=== PATIENT | female | born 1945 | race Caucasian/White ===

== ENCOUNTER 2022-10-16 11:54 | Inpatient (IN) | payer MEDICARE, SELFPAY ==
[2022-10-16] VITALS (7 sets, daily range): BP systolic 118–160; BP diastolic 56–99; PULSE 68–91; RESP 17–24; TEMP 36.5–36.8; O2SAT 90–98
--- NOTE | 2022-10-16 12:10 | XR_ITS ---
WS: [id number] Portable AP semiupright chest, 10/16/2022 Clinical Data: dyspnea/cough Comparison: Portable chest, 12/20/2014 Findings: No nodules, masses or effusions are seen. There is a minimal patchy opacity extending from the right hilum into the right lower lobe. The heart is normal. The pulmonary vascularity is not incr eased. No pneumothorax is seen. The aortic arch and descending thoracic aorta show tortuosity and mil d calcification. There are monitor leads on the chest wall. The patient has had a posterior thoracolu mbar fusion. There is a healed right lateral seventh rib fracture. Impression: 1. Atherosclerosis. 2. Minimal patchy right hilar opacity which could indicate pneumonia and/or atelectasis.
--- NOTE | 2022-10-16 12:12 | CT_ITS ---
WS: [id number] CT HEAD TECHNIQUE: Noncontrast CT of the head obtained from the skullbase to the vertex. CLINICAL INFORMATION: AMS COMPARISON: None. DLP: 876.[address] scans at [facility] use at least one of these dose optimization techniques: automated e xposure control; mA and/or kV adjustment per patient size (includes targeted exams where dose is matc hed to clinical indication); or iterative reconstruction. FINDINGS: No evidence of intracranial hemorrhage or mass effect. Ventricular system and basal cisterns are muñoz nt. Moderate to advanced small vessel changes with moderate parenchymal volume loss. No extra-axial f luid collections. No evidence of mass or mass effect. Vascular calcification. Tiny chronic lacunar in farcts in the cerebellum. 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 This can be fo llowed up with CTA. No evidence of hemorrhage. Tiny chronic lacunar infarcts in the LEFT greater than RIGHT basal ganglia and LEFT thalamus. Paranasal sinuses and mastoid air cells are well aerated. .Normal visualized soft tissues. Normal po sterior nasopharynx. IMPRESSION: 1. No evidence of intracranial hemorrhage or mass effect. 2. Moderate to advanced small vessel changes with moderate parenchymal volume loss. 3. Intracranial vascular calcification. 4. 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 This can be followed up with CTA. No evidence of hemorrhage. 5. No other suspicious findings. Notified Andrew Conti DO at 10/16/2022 1:05 PM.
--- NOTE | 2022-10-16 12:12 | ECG_ITS ---
[facility] Test Date: 2022-10-16 Pat Name: Jacquelin Leal Department: Room: Gender: Female Paper Bundler: : 1945 Requested By: Andrew Cruz Order Number: [id number] Leticia MD: Gallo Albarado M.D. Measurements Intervals [place] Rate: 65 P: 39 [place]: 166 QRS: -19 QRSD: 89 T: 75 QT: 415 QTc: 433 Interpretive Statements SINUS RHYTHM MINIMAL VOLTAGE CRITERIA FOR LVH, CONSIDER NORMAL VARIANT [MEETS CRITERIA IN ONE OF: R(aVL), S(V1), R(V5), R(V5/V6)+S(V1)] No previous ECG available for comparison Electronically Signed On 10-16-2022 17:21:19 CDT by Gallo Albarado M.D. [id number]
[2022-10-16 12:23] LABS: Basophils # 0.1 10^3/uL (0.0-0.1); Basophils % 0.5 %; Eosinophils % 0.1 %; Hematocrit 47.5 % (36-47); Lymphocytes # 1.8 10^3/uL (0.8-4.8); Lymphocytes % 16.6 %; Mean Corpuscular HGB Conc 31.6 g/dL (30-55); Mean Corpuscular Hemoglobin 29.5 pg (27-33); Mean Corpuscular Volume 93.5 fl (85-98); Monocytes # 0.7 10^3/uL (0.2-0.9); Monocytes % 6.6 %; Neutrophils # 8.36 10^3/uL (1.8-7.7); Neutrophils % 75.8 %; Nucleated Red Blood Cells % 0 %; Platelet Count 203 10^3/cmm (157-399); Red Blood Count 5.08 10^6/uL (3.85-5.65); Red Cell Distribution Width 13.1 % (12.1-15.1); White Blood Count 11.02 10^3/uL (3.29-11.43)
--- NOTE | 2022-10-16 12:31 | PC.PHAR ---
PT UNABLE TO VERIFY DUE TO AMS- MEDICATIONS VERIFIED USING EXTERNAL MED LIST AND CALLING [facility]
[2022-10-16 12:41] LABS: Alanine Aminotransferase 16 U/L (0-33); Albumin Level 4.3 g/dL (3.5-5.2); Alkaline Phosphatase 132 U/L (35-105); Calcium 9.1 mg/dL (8.5-10.5); Carbon Dioxide 19 mmol/L (22-29); Chloride 100 mmol/L (98-107); Creatine Phosphokinase 200 U/L (26-192); Globulin 3.2 g/dL (1.3-4.6); Glucose 135 mg/dL (65-115); Magnesium 2.9 mg/dL (1.7-2.3); Osmolality Calculated 305 mOsm/kg (285-295); Sodium 133 mmol/L (136-145); Total Protein 7.5 g/dL (6.6-8.7)
--- NOTE | 2022-10-16 12:45 | W.ED.AMS ---
HPI - Altered Mental Status General: Chief Complaint: Altered Mental Status Stated Complaint: fall,ams Time Seen by Provider: 10/16/22 12:01 Source: patient Mode of arrival: EMS History of Present Illness: 76-year-old female who presents to the emergency room with a complaint of altered mental status. Her sister is here with her. She is alert but does not remember anything she is noted a difficult time with her name and her birthday she does remember that she lives in [place] she is able to tell me she feels a little bit short of breath but otherwise denies everything else. He is unsure of date or time. There is bruising on the right jewish. No other injuries. A sister who is a nearest family member states she normally manages her own finances buys her groceries she has not driven for several years normally she is ambulatory without difficulty. She states this is definitely altered mental status for her. Her last known well was 2 days ago she is uncertain if anyone seen her yesterday MD complaint: altered mental status Timing confirmed by: family member Severity: moderate Review of Systems General: Reports: ROS unobtainable due to mental status PFSH ED PFSH: Medical History MIGUEL (acute kidney injury) AMS (altered mental status) Delirium Hyperkalemia Hypertension Metabolic acidosis Family History Denies family history of Bleeding disorder Social History Smoking and tobacco status: never smoked Physical Exam Const: ORIENTATION/CONSCIOUSNESS: Yes awake HENMT: COMMON NORMALS: normocephalic, atraumatic, hearing grossly normal bilaterally, Normal nasal mucous membranes and turbinates present, moist oral mucous membranes and oropharynx normal HEAD & SCALP: normocephalic and atraumatic NOSE: Normal nasal mucous membranes and turbinates present Eye: COMMON NORMALS: Equal, round and reactive pupils present, EOMs intact bilaterally, conjunctivae normal and no scleral icterus CONJUNCTIVA: Yes conjunctivae normal PUPIL: Yes Equal, round and reactive pupils present Neck/C-Spine: COMMON NORMALS: full ROM, no lymphadenopathy, supple and no JVD Lymph: LYMPHATIC: no lymphadenopathy noted and no lymphedema noted Resp: COMMON NORMALS: normal respiratory effort, No retractions, No use of accessory muscles and clear to auscultation bilaterally AUSCULTATION: clear to auscultation bilaterally Cardio: COMMON NORMALS: no JVD, regular rate, regular rhythm and No murmurs present (Cardio) RATE: regular rate RHYTHM: regular rhythm GI: COMMON NORMALS: Soft to palpation and No hepatosplenomegaly present AUSCULTATION: Yes normoactive bowel sounds PALPATION: Yes Soft to palpation, No Tenderness to palpation present (GI), No Guarding due to palpation present (GI) and Yes No hepatosplenomegaly present Extremity: COMMON NORMALS: normal to inspection, capillary refill normal, no clubbing, cyanosis or edema, no calf tenderness and no pedal edema Skin: COMMON NORMALS: no rashes or lesions noted GENERAL SKIN EXAM: no rashes or lesions noted Course Vital Signs: Vital signs: Vital Signs Temperature 98.3 F 10/19/22 14:20 Pulse Rate 79 10/19/22 14:20 Respiratory Rate 16 10/19/22 14:20 Blood Pressure 148/79 10/19/22 14:20 Pulse Oximetry 94 10/19/22 14:20 Oxygen Delivery Me thod Room Air 10/19/22 11:05 MDM - Altered Mental Status Medical Decision Making Acute encephalopathy with acute kidney injury and mild metabolic acidosis hypertension. There is some mild underlying dementia as well. Suspect that the majority of her issues driven by her acute kidney injury and for volume depletion. Discussed with hospitalist orders written Medical Records I reviewed the patient's medical records. Lab Data I reviewed the patient's lab results. 10/18/22 04:32 10/19/22 05:00 Laboratory Results WBC 11.02 10^3/uL (3.29-11.43) 10/16/22 12:18 RBC 5.08 10^6/uL (3.85-5.65) 10/16/22 12:18 Hgb 15.00 g/dL (11.27-16.99) 10/16/22 12:18 Hct 47.5 % (36-47) H 10/16/22 12:18 MCV 93.5 fl (85-98) 10/16/22 12:18 MCH 29.5 pg (27-33) 10/16/22 12:18 MCHC 31.6 g/dL (30-55) 10/16/22 12:18 RDW 13.1 % (12.1-15.1) 10/16/22 12:18 Plt Count 203 10^3/cmm (157-399) 10/16/22 12:18 MPV 10.0 fL (7.4-10.4) 10/16/22 12:18 Neut % (Auto) 75.8 % 10/16/22 12:18 Lymph % (Auto) 16.6 % 10/16/22 12:18 [place] % (Auto) 6.6 % 10/16/22 12:18 Eos % (Auto) 0.1 % 10/16/22 12:18 Baso % (Auto) 0.5 % 10/16/22 12:18 Neut # (Auto) 8.36 10^3/uL (1.8-7.7) H 10/16/22 12:18 Lymph # (Auto) 1.8 10^3/uL (0.8-4.8) 10/16/22 12:18 [place] # (Auto) 0.7 10^3/uL (0.2-0.9) 10/16/22 12:18 Eos # (Auto) 0.0 10^3/uL (0.0-0.8) 10/16/22 12:18 Baso # (Auto) 0.1 10^3/uL (0.0-0.1) 10/16/22 12:18 Nucleated RBC % (auto) 0 % 10/16/22 12:18 Nucleated RBCs # 0.0 /100WBC 10/16/22 12:18 PT 14.40 SECONDS (12.1-14.9) 10/16/22 12:18 INR 1.09 (0.8-1.2) 10/16/22 12:18 APTT 35.8 SECONDS (23.9-36.7) 10/16/22 12:18 Specimen Type Arterial 10/16/22 13:02 Sample Site Radial, left 10/16/22 13:02 ABG pH 7.27 (7.35-7.45) L 10/16/22 13:02 ABG pCO2 38.4 mmHg (35-45) 10/16/22 13:02 ABG pO2 70.7 mmHg (80.0-100.0) L 10/16/22 13:02 ABG HCO3 17.5 mmol/L (22-26) L 10/16/22 13:02 ABG O2 Saturation 94.7 10/16/22 13:02 ABG Base Excess -8.9 mmol/L (-2.0-2.0) L 10/16/22 13:02 Obi Test Pos 10/16/22 13:02 A-a O2 Gradient 4.0 mmHg (5-10) L 10/16/22 13:02 Hematocrit 47.5 % (37-47) H 10/16/22 13:02 Hgb O2 Saturation 92.9 % (95-100) L 10/16/22 13:02 Carboxyhemoglobin 1.5 %THgb (0.4-20.1) 10/16/22 13:02 Methemoglobin 0.3 % (0.4-1.5) L 10/16/22 13:02 Total Hemoglobin 15.5 g/dL (12-16) 10/16/22 13:02 Sodium 137.0 mmol/L (131-143) 10/16/22 13:02 Potassium 6.2 mmol/L (3.5-5.0) H 10/16/22 13:02 Glucose 129.0 mg/dL (70-115) H 10/16/22 13:02 Ionized Calcium 1.2 mmol/L (1.1-1.4) 10/16/22 13:02 O2 Delivery Device Room air 10/16/22 13:02 FiO2 21.0 % 10/16/22 13:02 Machine Set Up Operator ID [place] 10/16/22 13:02 Sodium 133 mmol/L (136-145) L 10/16/22 12:18 Potassium 5.9 mmol/L (3.5-5.1) H 10/16/22 12:18 Chloride 100 mmol/L (98-107) 10/16/22 12:18 Carbon Dioxide 19 mmol/L (22-29) L 10/16/22 12:18 Anion Gap 19.9 (5-19) H 10/16/22 12:18 BUN 89 mg/dL (8-23) H* 10/16/22 12:18 Creatinine 3.7 mg/dL (0.5-0.9) H 10/16/22 12:18 GFR Calculation Not Reportable 10/16/22 12:18 Glucose 135 mg/dL (65-115) H 10/16/22 12:18 Estimat Average Glucose 105 10/16/22 12:18 Hemoglobin A1c 5.3 % (4.0-6.0) 10/16/22 12:18 Calculated Osmolality 305 mOsm/kg (285-295) H 10/16/22 12:18 Lactic Acid 1.3 mmol/L (0.5-2.2) 10/16/22 13:30 Calcium 9.1 mg/dL (8.5-10.5) 10/16/22 12:18 Magnesium 2.9 mg/dL (1.7-2.3) H 10/16/22 12:18 Magnesium 3.0 mg/dL (1.7-2.3) H 10/16/22 12:18 Total Bilirubin 1.0 mg/dL (0.15-1.2) 10/16/22 12:18 AST 23 U/L (0-32) 10/16/22 12:18 ALT 16 U/L (0-33) 10/16/22 12:18 Alkaline Phosphatase 132 U/L (35-105) H 10/16/22 12:18 Ammonia 24 umol/L (11-51) 10/16/22 13:30 Creatine Kinase 200 U/L (26-192) H 10/16/22 12:18 Total Protein 7.5 g/dL (6.6-8.7) 10/16/22 12:18 Albumin 4.3 g/dL (3.5-5.2) 10/16/22 12:18 Globulin 3.2 g/dL (1.3-4.6) 10/16/22 12:18 Vitamin B12 > 2000 pg/mL (232-1245) H 10/16/22 12:18 Procalcitonin 0.27 ng/mL (0-0.5) 10/16/22 12:18 TSH 1.35 uIU/mL (0.27-4.20) 10/16/22 12:18 Urine Color Yellow (Yellow) 10/16/22 14:38 Urine Appearance Sl hazy (CLEAR) A 10/16/22 14:38 Urine pH 5 (5-7) 10/16/22 14:38 Ur Specific [place] 1.020 (1.005-1.030) 10/16/22 14:38 Urine Protein Trace (Negative) 10/16/22 14:38 Urine Glucose (UA) Norm (Normal) 10/16/22 14:38 Urine Ketones Negative (Negative) 10/16/22 14:38 Urine Blood 3+ (Negative) H 10/16/22 14:38 Urine Nitrate Negative (Negative) 10/16/22 14:38 Urine Bilirubin Neg (Negative) 10/16/22 14:38 Urine Urobilinogen Norm mg/dL (Negative) 10/16/22 14:38 Ur Leukocyte Esterase Negative (Negative) 10/16/22 14:38 Urine RBC 0-4 /hpf (0-2) H 10/16/22 14:38 Urine WBC 0-4 /hpf (0-5) H 10/16/22 14:38 Ur Squamous Epith Cells 0-4 /hpf (0-5) H 10/16/22 14:38 Amorphous Sediment 2+ /hpf 10/16/22 14:38 Urine Bacteria Trace /hpf (NONE) 10/16/22 14:38 Serum Ketones Negative (Negative) 10/16/22 12:18 Discharge Plan Discharge Patient Disposition: Admitted As Inpatient Admit Provider: Herlinda Griffith Clinical Impression: Delirium due to general medical condition, Acute kidney injury, Metabolic acidosis, increased anion gap, Dementia Condition: Stable Coding Level of Care Code ED Glass Tinter for Carmela Jalloh
[2022-10-16 12:58] LABS: Anion Gap 19.9 (5-19); Aspartate Amino Transferase 23 U/L (0-32); Blood Urea Nitrogen 89 mg/dL (8-23); Potassium 5.9 mmol/L (3.5-5.1)
[2022-10-16 13:13] LABS: ABG PCO2 38.4 mmHg (35-45); ABG PH Result 7.27 (7.35-7.45); Arterial Blood Gas Hematocrit 47.5 % (37-47); Base Excess ABG -8.9 mmol/L (-2.0-2.0); Blood Gas Allen Test Pos; Blood Gas Operator Identificat WALCI; Blood Gas Sample Site Radial, left; Blood Gas Sample Type Arterial; Carboxyhemoglobin 1.5 %THgb (0.4-20.1); HCO3 ABG 17.5 mmol/L (22-26); HGB O2 Sat 92.9 % (95-100); Ionized Calcium Level - ABG 1.2 mmol/L (1.1-1.4); Methemoglobin 0.3 % (0.4-1.5); Oxygen Device ROOM AIR; Oxygen Saturation ABG 94.7; PO2 ABG 70.7 mmHg (80.0-100.0); Potassium Level - ABG 6.2 mmol/L (3.5-5.0); Total Hemoglobin 15.5 g/dL (12-16)
[2022-10-16 13:16] LABS: Ketone (Acetest) Serum Negative (Negative)
[2022-10-16 13:24] LABS: INR 1.09 (0.8-1.2)
[2022-10-16 13:25] LABS: Partial Thromboplastin Time 35.8 SECONDS (23.9-36.7)
--- NOTE | 2022-10-16 13:38 | CT_ITS ---
WS: [id number] CT ABDOMEN PELVIS TECHNIQUE: Noncontrast CT of the abdomen and pelvis with coronal and sagittal reformatted images. CLINICAL INFORMATION: Abdominal pain COMPARISON: CT 2015 DLP: 797.[address] scans at [facility] use at least one of these dose optimization techniques: automated e xposure control; mA and/or kV adjustment per patient size (includes targeted exams where dose is matc hed to clinical indication); or iterative reconstruction. FINDINGS: Lung bases are well aerated. Slight bibasal atelectasis. Noncontrast liver is normal. Mild fluid dist ention of the gallbladder. No gallbladder wall thickening or pericholecystic fluid. Noncontrast splee n appears normal. Normal GE junction. Mild fatty atrophy of the pancreas. Normal noncontrast aorta. A drenal glands are normal. No hydronephrosis in either kidney. Urine distended bladder. Sigmoid diverticulosis. No evidence of acute diverticulitis. Normal appendix in the RIGHT lower quadrant. No free fluid in the abdomen or pelvis. Chronic postoperative changes l ower thoracic and lumbar spine with pedicle screw fixation and interconnecting rods. IMPRESSION: 1. Mild fluid distention of the gallbladder which is otherwise normal in appearance. 2. No hydronephrosis in either kidney. No obstructing renal or ureteral calculi. 3. Sigmoid diverticulosis. No evidence of acute diverticulitis. 4. No other suspicious findings.
[2022-10-16] MEDS: dextrose 10% 250 ML 1000 ML IV (13:42)
[2022-10-16] MEDS: piperacillin-tazobactam 3.375 GM in sodium chloride 0.9% (plus) 50 ML IV (13:46)
[2022-10-16] MEDS: sodium chloride 0.9% 1,000 ML 999 ML IV (13:47)
[2022-10-16 13:54] LABS: Ammonia 24 umol/L (11-51); Lactic Sepsis W/Reflex 1.3 mmol/L (0.5-2.2)
[2022-10-16] MEDS: albuterol 2.5 mg/3 mL Neb 7.5 MG INHALATION (14:14)
[2022-10-16] MEDS: insulin regular-human 100 units/1 mL 10 UNIT IVP (14:16)
[2022-10-16] MEDS: calcium gluconate 0.9% NaCL 1 GM/50 ML PREMIX IV ×2 (14:17→14:41)
[2022-10-16 14:55] LABS: Glucose Urine UA Norm (Normal); Ketones Urine Negative (Negative); Protein Urine Trace (Negative); Urine Appearance SL Hazy (CLEAR); Urine Color Yellow (Yellow); pH Urine 5 (5-7)
[2022-10-16 14:56] LABS: Add Urine Culture? No; Add Urine Microscopic? YES; Amorphous Sediment Urine 2+ /hpf; Bacteria Urine TRACE /hpf; Bilirubin Urine Neg (Negative); Blood Urine 3+ (Negative); Leukocyte Esterase Urine Negative (Negative); Nitrate Urine Negative (Negative); RBC Urine 0-4 /hpf (0-2); Squamous Epithelial Cell Urine 0-4 /hpf (0-5); Urobilinogen Urine Norm (Negative); WBC Urine 0-4 /hpf (0-5)
[2022-10-16 15:16] LABS: Glucose Point of Care 117 mg/dL (70-110)
--- NOTE | 2022-10-16 15:25 | P.HP_ITS ---
Providers/Chief Complaint Primary Care Provider: Ghada Burton APN Chief Complaint: fall,ams History of Present Illness Jacquelin Leal is a 76 year old female who carries a diagnosis of memory impairment, hypertension, anxiety, dyslipidemia presented to the hospital with chief complaint of confusion. Sister is at the bedside who is stating that she called EMS when she found her sister to be confused. Last Wednesday they went to [facility] for grocery shopping. At baseline patient is forgetful, struggling with her financial services consultant, she is living in a high-rise building at one of the [facility] apartments, she is at risk of losing her apartment because her room has not been very tidy she is under stress. 2 weeks ago she went to see primary care physician who added medications other than lisinopril which she has been taking for hypertension. In the ER she is dehydrated and confused, CT abdomen pelvis was requested wi thout contrast, she is afebrile, no leukocytosis Review of Systems General: Reports: ROS unobtainable due to medical condition Medications/Allergies Home Medications Medication Instructions Recorded Confirmed Last Taken Type baclofen 5 mg tablet 5 mg PO TID PRN Pain 10/16/22 10/16/22 Unknown History buspirone 10 mg tablet 10 mg PO BID 10/16/22 10/16/22 Unknown History citalopram 20 mg tablet 20 mg PO BID 10/16/22 10/16/22 Unknown History lisinopril 20 mg tablet 20 mg PO BID 10/16/22 10/16/22 Unknown History metoprolol tartrate 50 mg tablet See Rx Instructions .Route .COMPLEX 10/16/22 10/16/22 Unknown History rosuvastatin 20 mg tablet 20 mg PO QPM 10/16/22 10/16/22 Unknown History tramadol 50 mg tablet 50 mg PO Q4H PRN Pain 10/16/22 10/16/22 Unknown History triamterene 37.5 1 tab PO DAILY 10/16/22 10/16/22 Unknown History mg-hydrochlorothiazide 25 mg tablet Allergies Allergy/AdvReac Type Severity Reaction Status Date / Time Unable to Assess Allergy Unverified 10/16/22 14:10 PFSH Acute PFSH: Medical History Hypertension Family History Denies family history of Bleeding disorder Social History Smoking and tobacco status: never smoked Vitals/I&O/Wt Last Vital Signs Temp 98.1 F 10/16/22 12:03 Pulse 86 10/16/22 14:32 Resp 18 10/16/22 14:11 BP 160/70 10/16/22 14:19 Pulse Ox 98 10/16/22 14:11 O2 Del Method Room Air 10/16/22 14:11 10/16/22 10/16/22 10/16/22 06:59 14:59 22:59 Intake Total 340 / 340 1050 / 1390 Balance 340 / 340 1050 / 1390 Physical Exam Narrative: Patient is not oriented to time and place, oriented to person Able to tell me name of the president She is not able to tell me her date of , she notes her sister is in the ro om She is able to follow commands, nonfocal neuro exam Clinically looks dehydrated GCS 15 Systolic murmur present Currently on room air Hemodynamically stable Afebrile No signs of meningitis Urinary Catheter Management: Santiago: Cath Placed During This Visit: yes Urinary Catheter Date of Insertion: 10/16/22 Urinary Catheter Time of Insertion: 14:40 Data 10/16/22 12:18 10/16/22 12:18 Micro: Microbiology 10/16/22 13:36 Wet Prep - Final Other Source 10/16/22 13:30 Blood Culture - Preliminary Blood SPECIMEN COLLECTED 10/16/22 13:32 Blood Culture - Preliminary Blood SPECIMEN COLLECTED A&P Assessment and plan (1) Hypertension: (2) Delirium: (3) AMS (altered mental status): (4) MIGUEL (acute kidney injury): (5) Metabolic acidosis: Plan Hypoactive delirium with underlying dementia Cause most likely is MIGUEL and dehydration Reverse reversible causes such as dehydration and discontinue lisinopril nephrotoxic agents CT abdomen pelvis unremarkable No signs of UTI Hold baclofen Hold BuSpar For her hypertension I will give her amlodipine and metoprolol Hold hydrochlorothiazide Request physical therapy Patient most likely suffering from dementia, not able to manage her finances, forgetful, she is an avid reader had more than 100 blocks in her room Full code Sister is at the bedside DVT prophylaxis on board Hyperkalemia she was given insulin and calcium gluconate Hypertensive urgency: adjust antihypertensive regimen Most information has been taken from her sister, she patient is not able to provide good history For metabolic acidosis added bicarb Attestations Medical Necessity Statement*: Anticipating more than 2 midnights for management of MIGUEL and metabolic acidosis Diagnoses Hypertension I10 Delirium R41.0 AMS (altered mental status) R41.82 MIGUEL (acute kidney injury) N17.9 Metabolic acidosis E87.20
[2022-10-16 16:23] LABS: Procalcitonin 0.27 ng/mL (0-0.5)
[2022-10-16 17:24] LABS: Thyroid Stimulating Hormone 1.35 uIU/mL (0.27-4.20)
[2022-10-16] MEDS: sodium chloride 0.9% 1,000 ML 75 ML IV (17:42)
[2022-10-16] MEDS: sodium bicarbonate 650 mg Tablet PO ×2 (17:42→20:33)
[2022-10-16] MEDS: heparin 5,000 unit/mL INJ 1 mL 5000 UNIT SUBCUT (17:43)
[2022-10-16 18:43] LABS: Estmated Average Glucose 105; Hemoglobin A1C 5.3 % (4.0-6.0)
[2022-10-16] MEDS: metoprolol tartrate 25 mg Tablet PO (20:33)
[2022-10-16 22:18] LABS: Vitamin B12 > 2000 pg/mL (232-1245)
[2022-10-17] VITALS (7 sets, daily range): BP systolic 118–158; BP diastolic 63–77; PULSE 66–78; RESP 14–20; TEMP 36.4–37.2; O2SAT 93–94; BMI 31.6
[2022-10-17 05:53] LABS: Basophils % 0.3 %; Eosinophils # 0.1 10^3/uL (0.0-0.8); Eosinophils % 0.7 %; Hematocrit 44.7 % (36-47); Lymphocytes # 2.1 10^3/uL (0.8-4.8); Lymphocytes % 31.9 %; Mean Corpuscular HGB Conc 30.4 g/dL (30-55); Mean Corpuscular Hemoglobin 29.1 pg (27-33); Mean Corpuscular Volume 95.7 fl (85-98); Mean Platelet Volume 9.6 fL (7.4-10.4); Monocytes # 0.9 10^3/uL (0.2-0.9); Monocytes % 13.8 %; Neutrophils # 3.54 10^3/uL (1.8-7.7); Neutrophils % 53.2 %; Nucleated Red Blood Cells % 0 %; Platelet Count 151 10^3/cmm (157-399); Red Blood Count 4.67 10^6/uL (3.85-5.65); Red Cell Distribution Width 13.3 % (12.1-15.1); White Blood Count 6.67 10^3/uL (3.29-11.43)
[2022-10-17 06:20] LABS: Anion Gap 18.4 (5-19); Blood Urea Nitrogen 71 mg/dL (8-23); Calcium 8.7 mg/dL (8.5-10.5); Carbon Dioxide 18 mmol/L (22-29); Chloride 108 mmol/L (98-107); Glucose 89 mg/dL (65-115); Osmolality Calculated 308 mOsm/kg (285-295); Phosphorus 3.4 mg/dL (2.5-4.5); Potassium 5.4 mmol/L (3.5-5.1); Sodium 139 mmol/L (136-145)
[2022-10-17] MEDS: heparin 5,000 unit/mL INJ 1 mL 5000 UNIT SUBCUT ×2 (06:33→17:04)
[2022-10-17] MEDS: sodium chloride 0.9% 1,000 ML 75 ML IV ×2 (09:06→22:27)
[2022-10-17] MEDS: metoprolol tartrate 25 mg Tablet PO ×2 (09:13→20:00)
[2022-10-17] MEDS: sodium bicarbonate 650 mg Tablet PO ×3 (09:13→20:00)
[2022-10-17] MEDS: cefTRIAXone 1,000 MG in sodium chloride 0.9% (plus) 50 ML 100 MG IV (09:13)
[2022-10-17] MEDS: amlodipine 10 mg Tablet PO (09:13)
[2022-10-17] MEDS: sennosides-docusate Tablet 1 TAB PO (09:13)
--- NOTE | 2022-10-17 13:28 | PM.PN ---
Subjective Subjective: Adequate urine output Patient is not as confused as history Sister is at the bedside PT evaluation is pending Creatinine improving Afebrile Blood pressure stable Potassium 5.4 Vitals/I&O/Wt Last Vital Signs Temp 97.7 F 10/17/22 11:35 Pulse 73 10/17/22 11:35 Resp 19 H 10/17/22 11:35 BP 149/63 10/17/22 11:35 Pulse Ox 94 10/17/22 11:35 O2 Del Method Room Air 10/17/22 11:35 10/16/22 10/17/22 10/17/22 22:59 06:59 14:59 Intake Total 1100 / 1440 1015 / 2455 960 / 960 Output Total 1200 / 1200 550 / 1750 Balance -100 / 240 465 / 705 960 / 960 Weight last 48 hrs Weight 83.574 kg Physical Exam Narrative: Patient is awake and alert Short attention span Able to follow commands She is able to lift her lower extremities against gravity GCS 15 Awake and alert S1, S2 with murmur Clinical signs of dehydration present but improving Urinary Catheter Management: Santiago: Cath Placed During This Visit: yes Reason for Continuing Indwelling Catheter: Other Urinary Catheter Date of Insertion: 10/16/22 Urinary Catheter Time of Insertion: 14:40 Data 10/17/22 05:23 10/17/22 05:23 Micro: Microbiology 10/16/22 13:36 Wet Prep - Final Other Source 10/16/22 13:30 Blood Culture - Preliminary Blood SPECIMEN COLLECTED 10/16/22 13:32 Blood Culture - Preliminary Blood SPECIMEN COLLECTED A&P Assessment and plan (1) Metabolic acidosis: (2) MIGUEL (acute kidney injury): (3) AMS (altered mental status): (4) Delirium: (5) Hyperkalemia: Plan Hyperkalemia: We will give her Kayexalate today along with lactulose Hypoactive delirium secondary to dehydration: Improving Dehydration: Continue IV fluids MIGUEL related to dehydration: Improving No signs of stroke Patient is weak and lethargic we will request PT to see if she would need rehab Full code Carb diet Discontinue lisinopril hold baclofen and BuSpar Hold triamterene hydrochlorothiazide Attestations Medical Necessity Statement*: Discharge once we have PT evaluation retirement versus back to her assisted living Diagnoses Metabolic acidosis E87.20 MIGUEL (acute kidney injury) N17.9 AMS (altered mental status) R41.82 Delirium R41.0 Hyperkalemia E87.5
[2022-10-17] MEDS: lactulose oral liq 20 gm/30 mL UDC 10 GM PO (15:07)
[2022-10-17] MEDS: sodium polystyrene sulfonate 15 gm/60 mL Btl PO (15:08)
[2022-10-18] VITALS (7 sets, daily range): BP systolic 161–193; BP diastolic 74–82; PULSE 64–79; RESP 14–20; TEMP 36.3–36.8; O2SAT 92–96
[2022-10-18] MEDS: acetaminophen 500 mg Tablet PO ×2 (04:25→16:56)
[2022-10-18] MEDS: heparin 5,000 unit/mL INJ 1 mL 5000 UNIT SUBCUT ×2 (04:25→16:35)
[2022-10-18 04:49] LABS: Basophils % 0.5 %; Eosinophils # 0.1 10^3/uL (0.0-0.8); Eosinophils % 2.2 %; Hematocrit 43.2 % (36-47); Lymphocytes # 2.2 10^3/uL (0.8-4.8); Lymphocytes % 34.3 %; Mean Corpuscular Hemoglobin 29.3 pg (27-33); Mean Corpuscular Volume 94.5 fl (85-98); Mean Platelet Volume 9.7 fL (7.4-10.4); Monocytes # 0.9 10^3/uL (0.2-0.9); Monocytes % 13.5 %; Neutrophils # 3.15 10^3/uL (1.8-7.7); Neutrophils % 49.2 %; Nucleated Red Blood Cells % 0 %; Platelet Count 161 10^3/cmm (157-399); Red Blood Count 4.57 10^6/uL (3.85-5.65); Red Cell Distribution Width 13.2 % (12.1-15.1); White Blood Count 6.39 10^3/uL (3.29-11.43)
[2022-10-18 05:11] LABS: Anion Gap 14.8 (5-19); Blood Urea Nitrogen 48 mg/dL (8-23); Calcium 8.4 mg/dL (8.5-10.5); Carbon Dioxide 22 mmol/L (22-29); Chloride 110 mmol/L (98-107); Glucose 109 mg/dL (65-115); Osmolality Calculated 307 mOsm/kg (285-295); Potassium 4.8 mmol/L (3.5-5.1); Sodium 142 mmol/L (136-145)
[2022-10-18] MEDS: amlodipine 10 mg Tablet PO (09:04)
[2022-10-18] MEDS: sennosides-docusate Tablet 1 TAB PO (09:05)
[2022-10-18] MEDS: cefTRIAXone 1,000 MG in sodium chloride 0.9% (plus) 50 ML 100 MG IV (09:05)
[2022-10-18] MEDS: sodium bicarbonate 650 mg Tablet PO (09:05)
[2022-10-18] MEDS: metoprolol tartrate 25 mg Tablet PO ×2 (09:13→20:09)
--- NOTE | 2022-10-18 09:57 | PM.PN ---
Subjective Subjective: Jacquelin is endorsing feeling better Creatinine improved as well Adequately eating Patient is happy with the progress She wants go back to her apartment However PT evaluation is pending Depending on PT evaluation we will make a final decision Vitals/I&O/Wt Last Vital Signs Temp 97.5 F L 10/18/22 07:17 Pulse 69 10/18/22 07:33 Resp 17 10/18/22 07:33 BP 164/79 10/18/22 07:17 Pulse Ox 96 10/18/22 07:33 O2 Del Method Room Air 10/18/22 07:33 10/17/22 10/18/22 10/18/22 22:59 06:59 14:59 Intake Total 1360 / 2320 480 / 480 Output Total 1550 / 1550 600 / 2150 Balance -190 / 770 -600 / 170 480 / 480 Weight last 48 hrs Weight 83.574 kg Physical Exam Narrative: Patient is awake and alert Laying supine Currently on room air GCS 15 Nonfocal neuro exam Pleasant and cooperative Signs of dehydration improving Answer my question appropriately S1, S2 Urinary Catheter Management: Santiago: Cath Placed During This Visit: yes Reason for Continuing Indwelling Catheter: Other Urinary Catheter Date of Insertion: 10/16/22 Urinary Catheter Time of Insertion: 14:40 Data 10/18/22 04:32 10/18/22 04:32 Micro: Microbiology 10/16/22 13:32 Blood Culture - Preliminary Blood NEGATIVE TO DATE 10/16/22 13:30 Blood Culture - Preliminary Blood NEGATIVE TO DATE A&P Assessment and plan (1) Hyperkalemia: (2) Metabolic acidosis: (3) MIGUEL (acute kidney injury): (4) AMS (altered mental status): (5) Delirium: Plan Delirium related to dehydration: Resolved Metabolic encephalopathy related dehydration: Resolved Signs of dehydration improving MIGUEL related dehydration: Creatinine 1.4 today Adequate urine output Hyperkalemia: Resolved Depending on PT evaluation we will make a final decision whether patient is stable to return back to her apartment versus SNF Full code Cardiac consistent carbohydrate diet Patient is hypertensive today I have held her lisinopril triamterene hydrochlorothiazide, adjust antihypertensive regimen Attestations Medical Necessity Statement*: Discharge later today versus tomorrow Diagnoses Hyperkalemia E87.5 Metabolic acidosis E87.20 MIGUEL (acute kidney injury) N17.9 AMS (altered mental status) R41.82 Delirium R41.0
[2022-10-18] MEDS: hyDRALAzine 25 mg Tablet PO ×3 (10:19→20:09)
[2022-10-18] MEDS: sodium chloride 0.9% 1,000 ML 75 ML IV (12:01)
[2022-10-19] MEDS: acetaminophen 500 mg Tablet PO ×2 (00:10→07:37)
[2022-10-19] MEDS: sodium chloride 0.9% 1,000 ML 75 ML IV (00:10)
[2022-10-19 01:00] VITALS: BP 155/89; PULSE 65; RESP 17; TEMP 36.6; O2SAT 95
[2022-10-19] MEDS: heparin 5,000 unit/mL INJ 1 mL 5000 UNIT SUBCUT (04:07)
[2022-10-19 05:00] VITALS: BP 166/86; PULSE 63; RESP 18; TEMP 36.6; O2SAT 95
[2022-10-19 05:44] LABS: Anion Gap 15.3 (5-19); Blood Urea Nitrogen 27 mg/dL (8-23); Calcium 8.5 mg/dL (8.5-10.5); Carbon Dioxide 22 mmol/L (22-29); Chloride 107 mmol/L (98-107); Glucose 94 mg/dL (65-115); Osmolality Calculated 295 mOsm/kg (285-295); Potassium 4.3 mmol/L (3.5-5.1); Sodium 140 mmol/L (136-145)
[2022-10-19 08:12] VITALS: BP 177/79; PULSE 71; RESP 15; TEMP 36.7; O2SAT 94
[2022-10-19] MEDS: amlodipine 10 mg Tablet PO (08:33)
[2022-10-19] MEDS: hyDRALAzine 25 mg Tablet PO (08:33)
[2022-10-19] MEDS: sennosides-docusate Tablet 1 TAB PO (08:33)
--- NOTE | 2022-10-19 09:38 | P.DS_ITS ---
Discharge Providers Date of Admission: 10/16/22 14:44 Date of Discharge: October 19, 2022 Attending Provider at Admission: Herlinda Griffith MD Attending Provider at Discharge: Herlinda Griffith MD Primary Care Provider: Ghada Burton APN Diagnoses at Discharge Discharge Diagnosis (1) Hyperkalemia: Status: Acute (2) Metabolic acidosis: Status: Acute (3) MIGUEL (acute kidney injury): Status: Acute (4) AMS (altered mental status): Status: Acute (5) Delirium: Status: Acute Reason for Visit Reason for Visit: fall,ams Hospital Course Hospital Course 76-year female who lives in high [place] group home apartments came in for chief complaint of metabolic encephalopathy/confusion, there were no signs of UTI nonfocal neuro exam, no infectious source identified, patient was diagnosed with delirium related to dehydration as per the sister her p.o. intake has been poor, she loves to read has about 100 blocks in the room, she is not cleaning her room lately, concern for Alzheimer's dementia during hospitalization she was given IV fluids, she remained afebrile, her creatinine was above 2 on admission which improved to 1.1 at the time of discharge with the help of IV fluids, her antihypertensive regimen was changed because of MIGUEL lisinopril time. Hydrochlorothiazide discontinued Considering risk of dehydration she was put on metoprolol, lisinopril and amlodipine, hydrochlorothiazide triamterene discontinued She did well with PT, she gets dizzy related to orthostatic hypotension however she has received enough fluids during hospitalization, We are discharging her back to her group home apartment Physical Exam Narrative: Awake and alert Nonfocal neuro exam GCS 15 S1, S2 Currently on room air Abdomen soft Urinary Catheter Management: Santiago: Cath Placed During This Visit: yes Reason for Continuing Indwelling Catheter: Accurate Measurement of Urinary Output in Critically Ill Patients Urinary Catheter Date of Insertion: 10/16/22 Urinary Catheter Time of Insertion: 14:40 Discharge Data Studies Completed and Pending Completed Studies During Hospitalization Category Date Time Status CT abdomen pelvis wo con [id number] Stat Cat Scan 10/16/22 13:[address] head wo con* [id number] Stat Cat Scan 10/16/22 12:12 Completed XR chest 1V portable [id number] Stat Exams 10/16/22 12:10 Completed Pending at discharge Category Date Time Status Blood Culture Stat Lab 10/16/22 13:30 Results Laboratory Results WBC 6.39 10^3/uL (3.29-11.43) 10/18/22 04:32 RBC 4.57 10^6/uL (3.85-5.65) 10/18/22 04:32 Hgb 13.40 g/dL (11.27-16.99) 10/18/22 04:32 Hct 43.2 % (36-47) 10/18/22 04:32 MCV 94.5 fl (85-98) 10/18/22 04:32 MCH 29.3 pg (27-33) 10/18/22 04:32 MCHC 31.0 g/dL (30-55) 10/18/22 04:32 RDW 13.2 % (12.1-15.1) 10/18/22 04:32 Plt Count 161 10^3/cmm (157-399) 10/18/22 04:32 MPV 9.7 fL (7.4-10.4) 10/18/22 04:32 Neut % (Auto) 49.2 % 10/18/22 04:32 Lymph % (Auto) 34.3 % 10/18/22 04:32 Churchill % (Auto) 13.5 % 10/18/22 04:32 Eos % (Auto) 2.2 % 10/18/22 04:32 Baso % (Auto) 0.5 % 10/18/22 04:32 Neut # (Auto) 3.15 10^3/uL (1.8-7.7) 10/18/22 04:32 Lymph # (Auto) 2.2 10^3/uL (0.8-4.8) 10/18/22 04:32 Churchill # (Auto) 0.9 10^3/uL (0.2-0.9) 10/18/22 04:32 Eos # (Auto) 0.1 10^3/uL (0.0-0.8) 10/18/22 04:32 Baso # (Auto) 0.0 10^3/uL (0.0-0.1) 10/18/22 04:32 Nucleated RBC % (auto) 0 % 10/18/22 04:32 Nucleated RBCs # 0.0 /100WBC 10/18/22 04:32 PT 14.40 SECONDS (12.1-14.9) 10/16/22 12:18 INR 1.09 (0.8-1.2) 10/16/22 12:18 APTT 35.8 SECONDS (23.9-36.7) 10/16/22 12:18 Specimen Type Arterial 10/16/22 13:02 Sample Site Radial, left 10/16/22 13:02 ABG pH 7.27 (7.35-7.45) L 10/16/22 13:02 ABG pCO2 38.4 mmHg (35-45) 10/16/22 13:02 ABG pO2 70.7 mmHg (80.0-100.0) L 10/16/22 13:02 ABG HCO3 17.5 mmol/L (22-26) L 10/16/22 13:02 ABG O2 Saturation 94.7 10/16/22 13:02 ABG Base Excess -8.9 mmol/L (-2.0-2.0) L 10/16/22 13:02 Obi Test Pos 10/16/22 13:02 A-a O2 Gradient 4.0 mmHg (5-10) L 10/16/22 13:02 Hematocrit 47.5 % (37-47) H 10/16/22 13:02 Hgb O2 Saturation 92.9 % (95-100) L 10/16/22 13:02 Carboxyhemoglobin 1.5 %THgb (0.4-20.1) 10/16/22 13:02 Methemoglobin 0.3 % (0.4-1.5) L 10/16/22 13:02 Total Hemoglobin 15.5 g/dL (12-16) 10/16/22 13:02 Sodium 137.0 mmol/L (131-143) 10/16/22 13:02 Potassium 6.2 mmol/L (3.5-5.0) H 10/16/22 13:02 Glucose 129.0 mg/dL (70-115) H 10/16/22 13:02 Ionized Calcium 1.2 mmol/L (1.1-1.4) 10/16/22 13:02 O2 Delivery Device Room air 10/16/22 13:02 FiO2 21.0 % 10/16/22 13:02 Senior [employer] ID [place] 10/16/22 13:02 Sodium 140 mmol/L (136-145) 10/19/22 05:00 Potassium 4.3 mmol/L (3.5-5.1) 10/19/22 05:00 Chloride 107 mmol/L (98-107) 10/19/22 05:00 Carbon Dioxide 22 mmol/L (22-29) 10/19/22 05:00 Anion Gap 15.3 (5-19) 10/19/22 05:00 BUN 27 mg/dL (8-23) H 10/19/22 05:00 Creatinine 1.1 mg/dL (0.5-0.9) H 10/19/22 05:00 GFR Calculation Not Reportable 10/19/22 05:00 Glucose 94 mg/dL (65-115) 10/19/22 05:00 POC Glucose 117 mg/dL (70-110) H 10/16/22 15:14 Estimat Average Glucose 105 10/16/22 12:18 Hemoglobin A1c 5.3 % (4.0-6.0) 10/16/22 12:18 Calculated Osmolality 295 mOsm/kg (285-295) 10/19/22 05:00 Lactic Acid 1.3 mmol/L (0.5-2.2) 10/16/22 13:30 Calcium 8.5 mg/dL (8.5-10.5) 10/19/22 05:00 Phosphorus 3.4 mg/dL (2.5-4.5) 10/17/22 05:23 Magnesium 2.9 mg/dL (1.7-2.3) H 10/16/22 12:18 Magnesium 3.0 mg/dL (1.7-2.3) H 10/16/22 12:18 Total Bilirubin 1.0 mg/dL (0.15-1.2) 10/16/22 12:18 AST 23 U/L (0-32) 10/16/22 12:18 ALT 16 U/L (0-33) 10/16/22 12:18 Alkaline Phosphatase 132 U/L (35-105) H 10/16/22 12:18 Ammonia 24 umol/L (11-51) 10/16/22 13:30 Creatine Kinase 200 U/L (26-192) H 10/16/22 12:18 Total Protein 7.5 g/dL (6.6-8.7) 10/16/22 12:18 Albumin 4.3 g/dL (3.5-5.2) 10/16/22 12:18 Globulin 3.2 g/dL (1.3-4.6) 10/16/22 12:18 Vitamin B12 > 2000 pg/mL (232-1245) H 10/16/22 12:18 Procalcitonin 0.27 ng/mL (0-0.5) 10/16/22 12:18 TSH 1.35 uIU/mL (0.27-4.20) 10/16/22 12:18 Urine Color Yellow (Yellow) 10/16/22 14:38 Urine Appearance Sl hazy (CLEAR) A 10/16/22 14:38 Urine pH 5 (5-7) 10/16/22 14:38 Ur Specific Adrian 1.020 (1.005-1.030) 10/16/22 14:38 Urine Protein Trace (Negative) 10/16/22 14:38 Urine Glucose (UA) Norm (Normal) 10/16/22 14:38 Urine Ketones Negative (Negative) 10/16/22 14:38 Urine Blood 3+ (Negative) H 10/16/22 14:38 Urine Nitrate Negative (Negative) 10/16/22 14:38 Urine Bilirubin Neg (Negative) 10/16/22 14:38 Urine Urobilinogen Norm mg/dL (Negative) 10/16/22 14:38 Ur Leukocyte Esterase Negative (Negative) 10/16/22 14:38 Urine RBC 0-4 /hpf (0-2) H 10/16/22 14:38 Urine WBC 0-4 /hpf (0-5) H 10/16/22 14:38 Ur Squamous Epith Cells 0-4 /hpf (0-5) H 10/16/22 14:38 Amorphous Sediment 2+ /hpf 10/16/22 14:38 Urine Bacteria Trace /hpf (NONE) 10/16/22 14:38 Serum Ketones Negative (Negative) 10/16/22 12:18 Vitals Last Vital Signs Temp 98.0 F 10/19/22 08:12 Pulse 71 10/19/22 08:12 Resp 15 10/19/22 08:12 BP 177/79 10/19/22 08:12 Pulse Ox 94 10/19/22 08:12 O2 Del Method Room Air 10/19/22 08:12 Discharge Plan Discharge Patient Disposition: Home Condition: Stable Prescriptions: New amlodipine 10 mg Tablet 10 mg PO DAILY Qty: 30 0RF Continued tramadol 50 mg tablet 50 mg PO Q4H PRN (Reason: Pain) buspirone 10 mg tablet 10 mg PO BID rosuvastatin 20 mg tablet 20 mg PO QPM lisinopril 20 mg tablet 20 mg PO BID Qty: 60 0RF metoprolol tartrate 50 mg tablet See Rx Instructions .ROUTE .COMPLEX Qty: 60 0RF Rx Instructions: 50 mg orally QAM AND 100 MG PO QPM Discontinued citalopram 20 mg tablet 20 mg PO BID triamterene-hydrochlorothiazid 37.5-25 mg tablet 1 tab PO DAILY baclofen 5 mg tablet 5 mg PO TID PRN (Reason: Pain) Discharge Orders: Discharge Order (Routine); Ordered 10/19/22 Ordered By: Herlinda Griffith Referrals: Ghada Burton APN [Primary Care Provider] - Patient Instructions: Hyponatremia (ED), Benzodiazepine Use Disorder (ED), Dementia (ED), Non-diabetic Hypoglycemia (ED), Hypoglycemia in a Person with Diabetes (ED), Concussion (ED), Alcohol Intoxication (ED), Subarachnoid Hemorrhage (GEN), Altered Mental Status (ED), Opioid Safety Discharge Attestations Time Spent in Discharge Care*: greater than 30 min Quality Metrics Clinical Quality Measures [ No reported AMI, CVA or VTE this stay] Coding Level of Care Code Acute Code for g Fwd Diagnoses Hyperkalemia E87.5 Metabolic acidosis E87.20 MIGUEL (acute kidney injury) N17.9 AMS (altered mental status) R41.82 Delirium R41.0
[2022-10-19] MEDS: metoprolol tartrate 25 mg Tablet PO (09:40)
[2022-10-19 11:05] VITALS: BP 148/79; PULSE 79; RESP 16; TEMP 36.8; O2SAT 94
--- NOTE | 2022-10-19 12:43 | PC.SOCIAL ---
IMM Update pg 2 of IMM updated and reviewed w/ patient. Copy provided and Copy dated, initialed and placed in chart.
[2022-10-19 14:20] VITALS: BP 148/79; PULSE 79; RESP 16; TEMP 36.8; O2SAT 94
== END 2022-10-19 14:05 | disposition home or self-care (01) | DRG 682 ==
LOC: ER 15:15 → MEDSURG 15:40
PROVIDERS: Admitting Provider Internal Medicine; Emergency Provider Family Medicine; PCP Nurse Practitioner Family; Visit Provider Internal Medicine
DX: N17.9 Acute kidney failure, unspecified (principal); G93.41 Metabolic encephalopathy; E87.20 Acidosis, unspecified; F05 Delirium due to known physiological condition; E86.0 Dehydration; I95.1 Orthostatic hypotension; Z79.891 Long term (current) use of opiate analgesic; I10 Essential (primary) hypertension; F41.9 Anxiety disorder, unspecified; E78.5 Hyperlipidemia, unspecified; F03.90 Unspecified dementia, unspecified severity, without behavioral disturbance, psychotic disturbance, mood disturbance, and anxiety; E87.5 Hyperkalemia; I16.0 Hypertensive urgency
CPT/HCPCS: 36415; 36416; 36600; 51702; 70450; 71045; 74176; 80048; 80051; 80053; 81001; 82009; 82140; 82330; 82550; 82607; 82805; 82962; 83036; 83605; 83735; 84100; 84145; 84443; 85025; 85610; 85730; 87040; 87210; 93005; 94640; 96365; 96367; 96372; 96375; 97110; 97116; 97161; 97530; 99285; J0610; J0612; J0696; J1644; J1815; J2543; J7030; J7613; J7799